=== PATIENT | female | born 1990 | race Hispanic/Latino ===

== ENCOUNTER 2023-09-09 17:54 | Inpatient (IN) | payer MEDICAID, OTHER ==
[2023-09-09 18:27] VITALS: BMI 32.5
[2023-09-09] MEDS ORDERED: Tranexamic Acid 1,000 MG/10 ML VIAL IVP PRN (19:37)
[2023-09-09] MEDS ORDERED: fentaNYL 50 mcg/mL 1 mL Vial SLOW IVP PRN (19:37)
[2023-09-09] MEDS ORDERED: Ondansetron PF 4 MG/2 ML Vial IVP PRN (19:37)
[2023-09-09] MEDS ORDERED: Diphenoxylate HCl/Atropine Tablet PO PRN (19:37)
[2023-09-09] MEDS ORDERED: HYDROcodone/Acetaminophen 5/325 mg Tablet PO PRN (19:37)
[2023-09-09] MEDS ORDERED: Lidocaine 1% (PF) 30 ML VIAL SC PRN (19:37)
[2023-09-09] MEDS ORDERED: Acetaminophen 500 MG TAB PO PRN (19:37)
[2023-09-09] MEDS ORDERED: Misoprostol 200 MCG TAB PR PRN (19:37)
[2023-09-09] MEDS ORDERED: Methylergonovine 0.2 MG/ML VIAL IM PRN (19:37)
[2023-09-09] MEDS ORDERED: Promethazine HCl 25 MG/ML VIAL IM PRN (19:37)
[2023-09-09] MEDS ORDERED: Ibuprofen 800 MG TAB PO PRN (19:37)
[2023-09-09] MEDS ORDERED: Carboprost 250 MCG/ML AMP IM PRN (19:37)
[2023-09-09] MEDS ORDERED: hydrALAZINE 20 MG/ML VIAL SLOW IVP PRN (19:37)
[2023-09-09] MEDS ORDERED: Oxytocin 30 units/NS 500 ML 500 ML IV SCH (19:45)
[2023-09-09 19:50] LABS: Hematocrit 35.6 % (34.9-44.5); Hemoglobin 12.7 g/dL (12.0-15.5); Mean Corpuscular HGB CONC 35.7 g/dL (32.0-36.0); Mean Corpuscular Volume 84.2 fL (81.6-98.3); Mean Platelet Volume 11.4 fL (7.4-10.4); Platelet Count 305 10x3/uL (150-450); RBC Distribution Width 12.9 % (11.5-14.5); Red Blood Cell (RBC) Count 4.23 10x6/uL (3.90-5.03); White Blood Cell (WBC) Count 11.4 10x3/uL (3.5-10.5)
[2023-09-09 20:27] LABS: HBsAg Index 0.19 S/CO (0-0.99); Hep B Surf Ag - L&D Non-Reactive S/CO (NonReactive)
[2023-09-09 20:29] LABS: Syphilis Antibody Nonreactive (Nonreactive); Syphilis Antibody Index 0.05 S/CO (<1.00 Non-Reactive)
[2023-09-09] MEDS: Misoprostol 100 MCG TAB PO SCH (23:54)
[2023-09-10] MEDS: Oxytocin 30 units/NS 500 ML 500 ML IV SCH ×2 (07:15→18:21)
[2023-09-10] MEDS: Lactated Ringer's 1,000 ML IV SCH (07:15)
[2023-09-10] MEDS: fentaNYL/Ropivacaine Epidural 100 ML ONE (08:56)
[2023-09-10] MEDS ORDERED: Acetaminophen 325 MG TAB PO PRN (12:54)
[2023-09-10] MEDS ORDERED: Promethazine HCl 25 MG/ML VIAL IM PRN ×2 (12:54→19:31)
[2023-09-10] MEDS ORDERED: diphenhydrAMINE 50 MG/ML VIAL IVP PRN (12:54)
[2023-09-10] MEDS ORDERED: Ondansetron PF 4 MG/2 ML Vial IVP PRN ×2 (12:54→19:31)
[2023-09-10] MEDS ORDERED: Lactated Ringer's 500 ML IV PRN (12:54)
[2023-09-10] MEDS ORDERED: Moisturizing Cream (Eucerin) 113 GM JAR TOP PRN (12:54)
[2023-09-10] MEDS ORDERED: ePHEDrine Sulfate 50 MG/10 ML VIAL SLOW IVP PRN (12:54)
[2023-09-10] MEDS ORDERED: Naloxone HCl 0.4 mg/ml Vial IVP PRN ×2 (12:54)
[2023-09-10] MEDS ORDERED: Communication Order-Pharmacy FS SCH (13:00)
[2023-09-10] MEDS ORDERED: fentaNYL 2 mcg/Ropivacaine 0.2% Epidural 100 ML CADD EPIDURAL SCH (13:00)
[2023-09-10] MEDS ORDERED: HYDROcodone/Acetaminophen 5/325 mg Tablet PO PRN (19:31)
[2023-09-10] MEDS ORDERED: Benzocaine-Menthol 82.5 ML CAN TOP PRN (19:31)
[2023-09-10] MEDS ORDERED: Milk Of Magnesia 30 ML UDCUP PO PRN (19:31)
[2023-09-10] MEDS ORDERED: diphenhydrAMINE 25 MG CAP PO PRN (19:31)
[2023-09-10] MEDS ORDERED: Bisacodyl 10 MG SUPP PR PRN (19:31)
[2023-09-10] MEDS ORDERED: hydrALAZINE 20 MG/ML VIAL SLOW IVP PRN (19:31)
[2023-09-10] MEDS ORDERED: Lanolin Ointment 7 GM TUBE TOP PRN (19:31)
[2023-09-10] MEDS: Ibuprofen 800 MG TAB PO SCH (21:39)
[2023-09-10] MEDS: Docusate 100 MG CAP PO SCH (21:39)
[2023-09-11] MEDS ORDERED: Bupivacaine 0.25% HCL 30 ML VIAL ONE (07:00)
[2023-09-11] MEDS ORDERED: Bupivacaine PF 0.5% 30 ML VIAL ONE (07:00)
[2023-09-11] MEDS: Ferrous Sulfate 325 MG TAB PO SCH (08:56)
[2023-09-11] MEDS: Boostrix 0.5 ML (Tdap) VIAL (>/=7 yrs of age) IM ONE (08:56)
[2023-09-11] MEDS: Prenatal Vitamin 1 TAB PO SCH (08:57)
[2023-09-11 16:16] VITALS: BP 123/65; TEMP 98.4
== END 2023-09-11 18:20 | disposition home or self-care (01) | DRG 807 ==
LOC: CSHLD 17:54 → CSHPP 09-10 19:40
PROVIDERS: ADMIT Family Medicine; ATTEND Family Medicine
PROC: 10E0XZZ Delivery of Products of Conception, External Approach (ICD-10-PCS; principal; 2023-09-10)
PROC: 10907ZC Drainage of Amniotic Fluid, Therapeutic from Products of Conception, Via Natural or Artificial Opening (ICD-10-PCS; 2023-09-10)
DX: O24.420 Gestational diabetes mellitus in childbirth, diet controlled (principal); Z37.0 Single live birth; Z3A.39 39 weeks gestation of pregnancy; Z79.899 Other long term (current) drug therapy; Z79.82 Long term (current) use of aspirin
CPT/HCPCS: 36416; 85027; 86780; 86850; 86900; 86901; 87340; J0665; J2590; J7120